=== PATIENT | male | born 1995 | race Caucasian/White ===

== ENCOUNTER → 2016-07-05 | Outpatient (CLI) | payer BC | LOC: BHSO 10:37 | DX: F90.0 Attention-deficit hyperactivity disorder, predominantly inattentive type (principal) ==

== ENCOUNTER → 2016-07-25 | Outpatient (CLI) | payer BC | LOC: BHSO 09:56 | DX: F90.0 Attention-deficit hyperactivity disorder, predominantly inattentive type (principal) ==

== ENCOUNTER → 2016-09-13 | Outpatient (CLI) | payer BC | LOC: BHSO 09:17 | DX: F90.0 Attention-deficit hyperactivity disorder, predominantly inattentive type (principal) ==